=== PATIENT | male | born 1955 | race Caucasian/White ===

== ENCOUNTER → 2019-07-27 15:06 | Outpatient (CLI) | payer OTHER, SELFPAY ==
[2019-07-27 15:33] LABS: Absolute Lymphocyte Count 1.93 X10^3/uL (0.83-4.51); Absolute Neutrophil Count 3.4 X10^3/uL (2.0-7.7); Basophil# 0.05 X10^3/uL; Basophil% 0.8 % (0-1); Eosinophils% 1.6 % (0-5); Hematocrit 47.1 % (40-54); Hemoglobin 15.8 g/dL (13.0-16.5); Lymphocyte # 1.93 X10^3/ul (4.0); Lymphocyte % 30.9 % (19-41); Mean Corp Hgb Conc 33.5 g/dL (32-36); Mean Corpuscular Hgb 29.8 pg (27.0-32.0); Mean Corpuscular Volume 88.9 fL (80-94); Mean Platelet Vol. 9.6 fl (6.2-12.0); Monocyte# 0.74 X10^3/uL; Monocyte% 11.9 % (0-10); NRBC Flagged by Analyzer 0 % (0-5); Neutrophil # 3.39 X10^3/uL (2.7-7.7); Neutrophil % 54.3 % (47-70); Platelet Count 180 K/mm3 (150-450); RBC Distribution Width CV 12.8 % (11.6-14.6); White Blood Count 6.2 K/mm3 (4.4-11.0)
[2019-07-27 16:10] LABS: Anion Gap 6 (5-15); BUN 18 mg/dL (7-18); BUN/Creat Ratio 16.1 RATIO (10-20); Calcium,Total 9.2 mg/dL (8.5-10.1); Chloride 104 mmol/L (98-107); Creatinine, Serum 1.12 mg/dL (0.70-1.30); EST Glomerular Filtration Rate 70 mL/min (>60); Est Glom Filt Rate - Afr Amer 85 mL/min (>60); Glucose 120 mg/dL (74-106); PSA,Total - Annual Screen 0.79 ng/mL (0.00-4.00); Potassium 4.2 mmol/L (3.5-5.1); Sodium Level 139 mmol/L (136-145)
== END ==
PROVIDERS: Family Provider Family Medicine; PCP Family Medicine; Referring Provider Urology; Visit Provider Urology
DX: N47.1 Phimosis (principal); I25.10 Atherosclerotic heart disease of native coronary artery without angina pectoris; Z12.5 Encounter for screening for malignant neoplasm of prostate
CPT/HCPCS: 36415; 80048; 84153; 85025; G0103

== ENCOUNTER 2019-08-14 10:14 | Day surgery (SDC) | payer OTHER, SELFPAY ==
[2019-08-14] VITALS (9 sets, daily range): BP systolic 92–138; BP diastolic 59–81; PULSE 68–80; RESP 15–16; TEMP 36.3–36.7; O2SAT 2–97; BMI 37.5
[2019-08-14] MEDS: Lactated Ringers 1,000 ML 100 ML IV (10:50)
--- NOTE | 2019-08-14 11:50 | FOR_PTH ---
PATIENT: MADAN LACY LOC: [facility] [place] U[place][id number] AGE/SX: 63/M ROOM: RE08/14/[address]: Dr. Yuri Wiggins MD : 1955 BED: DIS: 08/14/2019 SPEC #: [id number] RECD: 08/14/19 15:39 STATUS: TANYA REDenies #: [id number] MARK: 08/14/19 11:[address]: Yuri Wiggins DEPT: SURGICAL PATHOLOGY RECD BY: Awa Degroot ENTERED: 08/17/19 09:53 SP TYPE: FORESKIN OTHR DR: Dr. Izaiah Rodriguez MD Tissues: Skin of foreskin, NOS Procedures: Surgery Specimen Level III HEADER OPERATION: Cystoscopy, circumcision PRE-OP DIAGNOSIS: Phimosis TISSUE SUBMITTED: Foreskin MICROSCOPIC DIAGNOSIS Foreskin, circumcision: Consistent with balanitis. Focal hyperkeratosis. AM:maxx 08/18/19 MICROSCOPIC DESCRIPTION Slides are reviewed. GROSS DESCRIPTION Received in fixative is one container labeled with the patient's name and designated foreskin. The specimen consists of an irregular piece of still-brown wrinkled skin measuring 6.5 x 4 x 0.5 cm. No skin lesion is identified. Ob Tech sections are submitted in one cassette. / SJ:maxx 08/17/19 TC:3 [facility]: [id number]
[2019-08-14] MEDS: Cefazolin 2 GM in 0.9% Normal Saline 100 ML IV (12:00)
[2019-08-14] MEDS: Bupivacaine Mpf 0.5% 30 ML VIAL (12:15)
--- NOTE | 2019-08-14 12:26 | DCINST_ITS ---
- Discharge Diagnoses Current Active Problems: Phimosis of the penis Reason(s) for Visit for Discharge Instructions: Circumcision and diagnostic cystoscopy You will use the following diet at home:: Regular Your food should be the consistency of: Regular Discharge Activity: Return to Normal Activity Call your doctor if your incision/area has: Continuous Slow Oozing, Sudden Increased Bleeding, Increased Pain/ Swelling, Increased Redness, Foul Smelling Discharge, Swelling at the incision site Suture Line Care: Avoid Pulling/Pushing, Avoid Pinching/Bending Instructions: Adult Circumcision Allergies/Adverse Reactions: Allergies calamine Allergy (Verified 08/14/19 10:32) Angioedema tramadol Allergy (Verified 08/14/19 10:32) unable to breathe Medications to take at Discharge Aspirin [Aspir 81] 81 mg PO DAILY 08/13/19 Atorvastatin Calcium [Lipitor] 20 mg PO QHS 08/13/19 Famotidine [Acid Earth Science Technical Officer] 20 mg PO DAILY 08/13/19 Has 880 mg PO BID 08/13/19 Ibuprofen 400 mg PO PRN PRN 08/13/19 Loratadine [Claritin] 10 mg PO DAILY 08/13/19 Lung Essentials 1,000 mg PO BID 08/13/19 Metoprolol Tartrate [Lopressor (Beta Jaimee)] 12.5 mg PO BID 08/13/19 Naproxen [Naprosyn] 250 mg PO BID PRN PRN 08/13/19 Turmeric Root Extract [Turmeric Curcumin] 500 mg PO DAILY 08/13/19 Primary Care Physician: Izaiah Rodriguez [Primary Care Provider] - Test Results: Test results from this visit will be discussed in further detail at your follow- up appointment, if applicable. Please Follow Up With: Yuri Wiggins MD When: 2 weeks
--- NOTE | 2019-08-14 12:30 | PCM.OPRPT ---
Report of Operation Date of Procedure: 08/14/19 Pre-Operative Diagnosis: Phimosis and BPH Post-Operative Diagnosis: The same Surgery/Procedure Performed:: Circumcision and diagnostic cystoscopy Description of Surgical Findings:: 63-year-old male who has severe phimosis of the penis desires to have a cystoscopy also has a mild BPH obstructive symptoms so today we will do a cystoscopy to evaluate the prostate and the bladder. He was taken back to the operating room. After smooth induction of general anesthesia he was placed supine on the table, the penis and testicles were shaved prepped and draped in usual sterile fashion. I then marked a circumferential circumcision on the foreskin. I used the electrocautery and dissected circumferentially all the way around the foreskin and then dissected using electrocautery down to the skin I then bivalved the foreskin and then dissected the foreskin off the subcoronal skin all the way around circumferentially the skin. I then reanastomosed the shaft skin to the subcoronal scrotal skin to complete the circumcision. Made sure that there was good hemostasis and no bleeding. Also did some several other stitches to close any gaps from the anastomosis of the shaft skin to the sub-scrotal skin. We then lubricated the flexible cystoscope we did a cystoscopy looked through the urethral channel through the bulbar urethra into the prostate got into the bladder the prostate was minimal obstructive tissue normal hyperplasia. Once that the bladder identified the trigone in the bladder and then in the posterior aspect the bladder there is a small tumor that was eminent from the bladder posterior wall. This was noted I will have the talk to the family regarding this tumor and will have to manage this tumor at a separate setting since is a new finding. Otherwise a circumcision went uneventful no comp occasions patient anesthetic is current uterus plate packed PACU good condition he will follow-up in the office Saturday to set him up for a biopsy and cauterization of the tumor in the office. Type of Anesthesia:: General Drains: none - Admit VTE Documentation VTE Present on Admission: No VTE Mechan Device Prophylaxis: SCD's
== END 2019-08-14 14:24 | disposition home or self-care (01) ==
LOC: SDC 10:21 → AC 10:21
PROVIDERS: Family Provider Family Medicine; PCP Family Medicine; Referring Provider Urology; Visit Provider Urology
PROC: (CPT 54161; principal; 2019-08-14 11:50)
DX: N47.1 Phimosis (principal); N40.1 Benign prostatic hyperplasia with lower urinary tract symptoms; N13.8 Other obstructive and reflux uropathy; D49.4 Neoplasm of unspecified behavior of bladder; K21.9 Gastro-esophageal reflux disease without esophagitis; K44.9 Diaphragmatic hernia without obstruction or gangrene; E78.00 Pure hypercholesterolemia, unspecified; Z79.899 Other long term (current) drug therapy; Z79.82 Long term (current) use of aspirin; I25.10 Atherosclerotic heart disease of native coronary artery without angina pectoris; Z95.1 Presence of aortocoronary bypass graft; I25.2 Old myocardial infarction; J44.9 Chronic obstructive pulmonary disease, unspecified
CPT/HCPCS: 52000; 54161; 88304; J7120; J2405

== ENCOUNTER → 2019-10-20 16:00 | Outpatient (CLI) | payer MEDICARE, OTHER, SELFPAY ==
[2019-08-14 10:41] VITALS: BMI 37.5
--- NOTE | 2019-10-20 16:00 | BLA_PTH ---
PATIENT: MADAN LACY LOC: [facility] U#:[id number] AGE/SX: 69/M ROOM: RE10/20/[address]: Dr. Yuri Wiggins MD : 1955 BED: DIS: SPEC #: [id number] RECD: 10/20/19 17:00 STATUS: TANYA BRENDA #: [id number] MARK: 10/20/19 16:[address]: Yuri Wiggins DEPT: SURGICAL PATHOLOGY RECD BY: Awa Degroot ENTERED: 10/21/19 11:39 SP TYPE: BLADDER BX OTHR DR: Dr. Izaiah Rodriguez MD Tissues: Urinary bladder, NOS Procedures: Surgery Specimen Level IV HEADER OPERATION: Bladder biopsy PRE-OP DIAGNOSIS: D41.4 TISSUE SUBMITTED: Bladder biopsy MICROSCOPIC DIAGNOSIS Urinary bladder, biopsy: Papillary urothelial carcinoma, grade 1. See comment. AM:maxx 10/22/19 COMMENT There is no invasion of lamina propria. Detrusor muscle fragments are not represented in the biopsy. Clinical correlation is suggested. Case has been reviewed in consultation with Dr. Gudino who concurs with the above diagnosis. IDC:SJ MICROSCOPIC DESCRIPTION Slides are reviewed. GROSS DESCRIPTION Received is one container labeled with the patient's name and not further designated. The specimen consists of one irregular fragment of light still soft tissue that measures 0.2 x 0.2 x 0.1 cm. The specimen is totally submitted in one cassette. / AM:rg 10/21/19 TC:0 CPT: 84723
== END ==
PROVIDERS: PCP Family Medicine; Referring Provider Urology; Visit Provider Urology
DX: D41.4 Neoplasm of uncertain behavior of bladder (principal)
CPT/HCPCS: 88305

== ENCOUNTER → 2020-02-09 17:14 | Outpatient (CLI) | payer MEDICARE, SELFPAY ==
[2019-08-14 10:41] VITALS: BMI 37.5
--- NOTE | 2020-02-09 09:40 | FLU_PTH ---
PATIENT: MADAN LACY LOC: [facility] U#:[id number] AGE/SX: 69/M ROOM: RE02/09/[address]: Dr. Yuri Wiggins MD : 1955 BED: DIS: SPEC #: [id number] RECD: 02/09/20 15:00 STATUS: TANYA REDenise #: [id number] MARK: 02/09/20 09:[address]: Yuri Wiggins DEPT: CYTOLOGY RECD BY: Awa Degroot ENTERED: 02/10/20 08:58 SP TYPE: Fluid OTHR DR: Dr. Izaiah Rodriguez MD Tissues: Urine Procedures: Special Stain Group II Cytospin Fluid HEADER OPERATION: Not noted PRE-OP DIAGNOSIS: Malignant neoplasm of anterior wall of bladder C67.3 TISSUE SUBMITTED: Urine for cytology DIAGNOSIS CYTOLOGY Urine for cytology (cytospin): Mildly atypical urothelial cells noted. Numerous crystals are also noted. SJ:maxx 02/11/20 COMMENT Please make reference to previous specimen ([id number]) urinary bladder, biopsy with diagnosis of papillary urothelial carcinoma, grade 1. Clinical correlation and appropriate follow up are necessary. Case has been reviewed in consultation with Dr. Pendleton who concurs with the above diagnosis. IDC:AM CYTOLOGY STUDY Slides are reviewed. CYTOLOGY GROSS Received is 30 ml of teena cloudy fluid labeled with the patient's name and and designated per the requisition as urine. Submitted for cytology preparation. / maxx 02/10/20 TC:5 CPT: 17030
[2020-02-09 17:16] LABS: Cytology, Body Fluid / CSF SEE PATHOLOGY REPORT
== END ==
PROVIDERS: PCP Family Medicine; Referring Provider Urology; Visit Provider Urology
DX: C67.3 Malignant neoplasm of anterior wall of bladder (principal)
CPT/HCPCS: 88108; 88313

== ENCOUNTER 2021-11-30 16:35 | Outpatient (CLI) | payer MEDICARE, SELFPAY ==
--- NOTE | 2021-11-30 13:41 | CYSPIN_PTH ---
PATIENT: MADAN LACY LOC: [facility] U#:[id number] AGE/SX: 66/M ROOM: RE11/30/[address]: Dr. Yuri Wiggins MD : 1955 BED: DIS: 11/30/2021 SPEC #: [id number] RECD: 12/01/21 08:59 STATUS: TANYA REQ #: [id number] MARK: 11/30/21 13:[address]: Yuri Wiggins DEPT: CYTOLOGY RECD BY: Adeline Dominguez ENTERED: 12/01/21 08:59 SP TYPE: CYSPIN FL OTHR DR: Dr. Izaiah Rodriguez MD Tissues: Urine Procedures: Pap Stain (control) Special Stain Group II Cytospin Fluid HEADER OPERATION: Not noted PRE-OP DIAGNOSIS: Malignant neoplasm of bladder TISSUE SUBMITTED: Urine for cytology DIAGNOSIS CYTOLOGY Urine for cytology (cytospin): Atypical urothelial cells present. See comment. AM:maxx 12/01/2021 COMMENT Reference is made to the patient's previous urinary bladder biopsy ([id number]) in which low-grade papillary urothelial carcinoma was identified. CYTOLOGY STUDY Slides are reviewed. CYTOLOGY GROSS Received is 50 ml of dark orange cloudy fluid labeled with the patient's name and and designated per the requisition as urine. Submitted for cytology preparation. / maxx 11/30/2021 TC:? CPT: 36208
[2021-11-30 16:55] LABS: Cytology, Body Fluid / CSF SEE PATHOLOGY REPORT
== END 2021-11-30 23:59 | disposition home or self-care (01) ==
LOC: LABSPEC 16:36
PROVIDERS: PCP Family Medicine; Visit Provider Urology
DX: C67.3 Malignant neoplasm of anterior wall of bladder (principal)
CPT/HCPCS: 88108; 88313

== ENCOUNTER → 2022-12-04 | Outpatient (CLI) | payer MEDICARE, SELFPAY ==
--- NOTE | 2022-12-04 | CYSPIN_PTH ---
PATIENT: MADAN LACY LOC: [facility] U#:[id number] AGE/SX: 67/M ROOM: RE12/04/[address]: Dr. Yuri Wiggins MD : 1955 BED: DIS: 12/04/2022 SPEC #: [id number] RECD: 12/04/22 15:00 STATUS: TANYA GUTIERREZ #: [id number] MARK: 12/04/22 00:[address]: Yuri Wiggins DEPT: CYTOLOGY RECD BY: Awa Degroot ENTERED: 12/05/22 07:54 SP TYPE: CYSPIN FL OTHR DR: Dr. Izaiah Rodriguez MD Tissues: Urine Procedures: Pap Stain (control) Special Stain Group II Cytospin Fluid HEADER OPERATION: Not noted PRE-OP DIAGNOSIS: Malignant neoplasm of bladder TISSUE SUBMITTED: Urine for cytology DIAGNOSIS CYTOLOGY Urine for cytology (cytospin): A few mildly atypical urothelial cells noted (AUC), [place] System Category III. See comment. SJ:maxx 12/05/2022 COMMENT The [place] System for urine cytology diagnostic categorization was used in the evaluation of this case. Please make reference to previous specimens ([id number]) urinary bladder, biopsy with diagnosis of ?papillary urothelial carcinoma, grade I? and ([id number]) urine for cytology with diagnosis of ?atypical urothelial cells present.? CYTOLOGY STUDY Slides are reviewed. CYTOLOGY GROSS Received is 75 ml of clear yellow fluid labeled with the patient's name and and designated per the requisition as urine. Submitted for cytology preparation. / maxx 12/04/2022 TC:5 CPT: 54159
[2022-12-04 16:27] LABS: Cytology, Body Fluid / CSF SEE PATHOLOGY REPORT
== END | disposition home or self-care (01) ==
LOC: LABSPEC 16:18
PROVIDERS: PCP Family Medicine; Visit Provider Urology
DX: C67.3 Malignant neoplasm of anterior wall of bladder (principal)
CPT/HCPCS: 88108; 88313